=== PATIENT | female | born 1980 | race Caucasian/White ===

== ENCOUNTER 2019-01-24 13:56 | Emergency (ER) | payer OTHER ==
[~2019-01-24] VITALS: Ht 165.1 cm; Wt 88.5 kg
[2019-01-24 14:00] VITALS: BP 153/91
[2019-01-24] MEDS ORDERED: QUETIAPINE FUM100 MG PO (18:11)
[2019-01-24] MEDS ORDERED: QUETIAPINE FUM400 MG PO (18:11)
[2019-01-24] MEDS ORDERED: BUSPIRONE HCL10 MG PO (18:12)
[2019-01-24] MEDS ORDERED: HYDROXYZINE PAM50 MG PO (18:13)
== END 2019-01-24 15:51 | disposition left against medical advice (07) ==
LOC: ER 13:56
DX: F31.9 Bipolar disorder, unspecified (principal)

== ENCOUNTER 2019-01-24 17:30 | Emergency (ER) | payer BC, OTHER ==
[~2019-01-24] VITALS: Ht 165.1 cm; Wt 88.0 kg
[2019-01-24] MEDS ORDERED: QUETIAPINE FUM400 MG PO (18:11)
[2019-01-24] MEDS ORDERED: QUETIAPINE FUM100 MG PO (18:11)
[2019-01-24] MEDS ORDERED: BUSPIRONE HCL10 MG PO (18:12)
[2019-01-24] MEDS ORDERED: HYDROXYZINE PAM50 MG PO (18:13)
[2019-01-24 18:16] LABS: AMP/METHAMP Negative (Negative); BARBITURATES Negative (Negative); BENZODIAZEPINES Negative (Negative); COCAINE Negative (Negative); METHADONE Negative (Negative); OPIATES Negative (Negative); PCP Negative (Negative)
[2019-01-24 21:21] LABS: ABSOLUTE NEUTROPHILS 3.2 thou/uL (1.4-8.2); EOSINOPHILS 0.6 % (0.0-3.0); HEMATOCRIT 41.6 % (37.0-47.0); HEMOGLOBIN 14.3 gm/dL (12.0-15.0); LYMPHOCYTES 36.3 % (24.0-44.0); MCH 37.3 pg (26.0-34.0); MCHC 34.3 g/dL (28.0-37.0); MCV 108.9 fL (80.0-100.0); MONOCYTES 6.9 % (1.0-8.0); PLATELET COUNT 181 thou/uL (150-400); POLYS 55.2 % (36.0-66.0); RBC 3.82 mil/uL (4.20-5.00); RDW 14.3 % (10.5-14.5); WBC 5.8 thou/uL (4.0-11.0)
[2019-01-24 21:30] LABS: ANION GAP 11 mmol/L (7-16); BUN 7 mg/dL (7-18); CALCIUM 8.3 mg/dL (8.5-10.1); CHLORIDE 103 mmol/L (98-107); CO2 25 mmol/L (21-32); CREATININE 0.7 mg/dL (0.6-1.0); GLUCOSE 81 mg/dL (74-106); POTASSIUM 4.8 mmol/L (3.5-5.1); SODIUM 139 mmol/L (136-145)
[2019-01-24 21:36] LABS: ALBUMIN 3.6 g/dL (3.4-5.0); DIRECT BILIRUBIN 0.1 mg/dL (<0.1-0.3); SALICYLATE 3.3 mg/dL (2.8-20.0); SGOT 75 U/L (15-37); SGPT 42 U/L (30-65); TOTAL BILIRUBIN 0.6 mg/dL (<0.1-1.0); TOTAL PROTEIN 7.1 g/dL (6.4-8.2)
[2019-01-24 23:08] VITALS: BP 132/86
--- NOTE | 2019-01-28 07:48 | EKG ---
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
== END 2019-01-24 23:11 | disposition left against medical advice (07) ==
LOC: ER 17:30
PROVIDERS: Nurse Practitioner
DX: F31.9 Bipolar disorder, unspecified (principal); Z88.0 Allergy status to penicillin; Z88.2 Allergy status to sulfonamides

== ENCOUNTER → 2020-04-13 | Outpatient (CLI) | payer BC, OTHER ==
[~2020-04-13] MED LIST: BUSPIRONE HCL10 MG PO; HYDROXYZINE PAM50 MG PO; QUETIAPINE FUM100 MG PO; QUETIAPINE FUM400 MG PO
== END ==
LOC: LAB 08:44
PROVIDERS: ATTEND Nurse Practitioner
DX: R05 Cough (principal); R06.02 Shortness of breath; Z20.828 Contact with and (suspected) exposure to other viral communicable diseases

== ENCOUNTER 2021-06-14 20:24 | Emergency (ER) | payer OTHER ==
[~2021-06-14] VITALS: Ht 162.6 cm; Wt 68.0 kg
[2021-06-14 20:56] LABS: ABSOLUTE NEUTROPHILS 11.3 thou/uL (1.4-8.2); BASOPHILS 0.3 % (0.0-2.0); EOSINOPHILS 0.1 % (0.0-3.0); HEMOGLOBIN 15.5 gm/dL (12.0-15.0); LYMPHOCYTES 4.3 % (24.0-44.0); MCH 32.2 pg (26.0-34.0); MCHC 33.7 g/dL (28.0-37.0); MCV 95.5 fL (80.0-100.0); MONOCYTES 2.6 % (1.0-8.0); PLATELET COUNT 315 thou/uL (150-400); POLYS 92.7 % (36.0-66.0); RBC 4.82 mil/uL (4.20-5.00); RDW 13.4 % (10.5-14.5); WBC 12.2 thou/uL (4.0-11.0)
[2021-06-14 21:07] LABS: CALCIUM 9.6 mg/dL (8.5-10.1); POTASSIUM 3.3 mmol/L (3.5-5.1)
[2021-06-14 21:18] LABS: ALBUMIN 4.2 g/dL (3.4-5.0); TOTAL BILIRUBIN 0.4 mg/dL (0.2-1.0); TOTAL PROTEIN 7.9 g/dL (6.4-8.2)
[2021-06-14 23:10] VITALS: BP 129/75
--- NOTE | 2021-06-15 08:00 | EKG ---
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 : 1980 Requested By: Yaa Lancaster Order Number: [id number] MD: Eliazar Hawkins Measurements Intervals [place] Rate: 102 P: 70 NM: 154 QRS: 53 QRSD: 102 T: 26 QT: 342 QTc: 446 Interpretive Statements Sinus tachycardia Probable left atrial enlargement Minimal ST depression, lateral leads Baseline wander in lead(s) I,II,III,aVR,aVL Compared to ECG 01/24/2019 18:23:18 ST (T wave) deviation now present Sinus rhythm no longer present Electronically Signed On 06-15-2021 8:00:07 [employer] by Eliazar Hawkins [email or web address] <ELECTRONICALLY SIGNED> By: Eliazar Hawkins MD, FACC 06/15/21799 31 31 Eliazar Hawkins MD, [facility] /EPI
== END 2021-06-14 23:11 | disposition home or self-care (01) ==
LOC: ER 20:24
PROVIDERS: Nurse Practitioner
DX: F41.9 Anxiety disorder, unspecified (principal); E78.5 Hyperlipidemia, unspecified; F32.9 Major depressive disorder, single episode, unspecified; Z79.899 Other long term (current) drug therapy; Z88.0 Allergy status to penicillin; Z88.2 Allergy status to sulfonamides